=== PATIENT | male | born 1975 | race Caucasian/White ===

== ENCOUNTER 2018-04-20 17:11 | Emergency (ER) | payer SELFPAY ==
[~2018-04-20] VITALS: Ht 170.2 cm; Wt 59.0 kg
[2018-04-20 18:16] LABS: BASO % 1 % (0-3); EOS # 0.1 x10^3/uL (0.0-0.7); EOS % 1 % (0-3); HEMATOCRIT 43.9 % (39.0-53.0); HEMOGLOBIN 14.9 g/dL (13.0-17.5); LYMPH % 25 % (24-48); MEAN CORPUSCULAR HEMOGLOBIN 32 pg (25-35); MEAN CORPUSCULAR HGB CONC 34 g/dL (31-37); MEAN CORPUSCULAR VOLUME 95 fL (79-100); MONO # 0.3 x10^3/uL (0.0-1.1); MONO % 4 % (0-9); NEUT # 5.5 x10^3uL (1.8-7.7); NEUT % 70 % (31-73); PLATELET COUNT 215 x10^3/uL (140-400); RED BLOOD COUNT 4.61 x10^6/uL (4.30-5.70); RED CELL DISTRIBUTION WIDTH 13.8 % (11.5-14.5); WHITE BLOOD COUNT 7.9 x10^3/uL (4.0-11.0)
[2018-04-20 18:27] LABS: CALCIUM 8.3 mg/dL (8.5-10.1); CREATININE 0.8 mg/dL (0.7-1.3); GFR 104.5; POTASSIUM 4.1 mmol/L (3.5-5.1)
[2018-04-20] MEDS ORDERED: THIAMINE 100 MG TABLET. PO ONE (19:00)
[2018-04-20] MEDS ORDERED: MULTIVIT INFUSN,ADULT 4,VIT K 10 ML, FOLIC ACID INJ 1 MG in IV NORMAL SALINE 1000ML BAG... IV ONE (19:00)
--- NOTE | 2018-04-20 19:09 | RAD ---
CT scan of the head without contrast 04/20/2018 Clinical History: Seizure. Fall. Head injury. Technique: Unenhanced, contiguous, 5 mm axial sections were obtained through the head. One or more of the following individualized dose reduction techniques were utilized for this study: 1. Automated exposure control. 2. Adjustment of the mA and/or kV according to patient size. 3. Use of iterative reconstruction technique. Findings: The ventricles and sulci are within normal limits in size and configuration. No focal area of abnormal attenuation is seen involving the brain parenchyma. No extra-axial fluid collection is seen. No skull fracture is seen. Mild mucosal thickening is seen along the right maxillary sinus. Impression: No acute intracranial abnormality is seen. CT scan of the cervical spine without contrast 04/20/2018 Clinical history: Fall with neck injury. Technique: Unenhanced, contiguous, 0.625 mm axial sections were obtained through the cervical spine. Axial, coronal and sagittal reconstructed images were obtained. One or more of the following individualized dose reduction techniques were utilized for this study: 1. Automated exposure control. 2. Adjustment of the mA and/or kV according to patient size. 3. Use of iterative reconstruction technique. Findings: Sagittal and coronal reconstructed images demonstrate minimal lateral curvature of the cervical spine, convex to the left. No fracture or subluxation cervical vertebrae is seen. Impression: No fracture or subluxation of the cervical vertebra is identified. Electronically signed by: Ashkan Barnes MD (04/20/2018 7:06 PM) [facility]
--- NOTE | 2018-04-20 20:32 | PHYS DOC ---
Past Medical History Past Medical History: Other Additional Past Medical Histor: SEIZURES (MISSY GREENWOOD APRN) Past Surgical History: Other Additional Past Surgical Histo: RIGHT KNEE ACL REPAIR (MISSY GREENWOOD APRN) Alcohol Use: Heavy Drug Use: None (MISSY GREENWOOD APRN) Adult General Chief Complaint Chief Complaint: SEIZURE HPI HPI Patient is a 43 year old male who was brought to the ER after a rapid response on the ground floor was initiated. Pt states he was driving when he felt like he was going to have a seizure so he drove himself to the ER from [place], [place]. Pt states when he got to the hospital he was lost and ended up falling on the floor. He reports head and neck pain from the fall. Security reviewed footage of the patient's arrival to the ER and his reported fall on the ground floor. Video footage showed the patient sitting on the floor, getting back up and then falling back onto his buttocks then proceeding to lie flat backwards. Pt admits to drinking a pint of vodka prior to coming to the ER. He was placed in a c-collar by the rapid response team and brought to room 20 on a gurney. Pt reports that he was prescribed keppra by [facility] last month after he was seen for seizures. He states he never filled the prescription because he could not afford it. PT also states that he has never been diagnosed with seizures by a neurologist and reports that no neurologist will evaluate him because he does not have insurance. (MISSY GREENWOOD APRN) Review of Systems Review of Systems Constitutional: Denies fever or chills [] Eyes: Denies change in visual acuity, redness, or eye pain [] HENT: Denies nasal congestion or sore throat [] Respiratory: Denies cough or shortness of breath [] Cardiovascular: No additional information not addressed in HPI [] GI: Denies abdominal pain, nausea, vomiting, or diarrhea [] Gu: Denies incontinence Musculoskeletal: See HPI Integument: Denies rash or skin lesions [] Neurologic: Denies focal weakness or sensory changes; see HPI Complete systems were reviewed and found to be within normal limits, except as documented in this note. (MISSY GREENWOOD APRN) Current Medications Current Medications Current Medications Medications (Trade) Dose Ordered Sig/Oswaldo Start Time Stop Time Status Last Admin Dose Admin Multivitamins 10 ml/Folic Acid 1 mg/Sodium Chloride 1,010.2 ml @ 999.099 mls/hr 1X ONCE 04/20/18 19:00 04/20/18 20:00 DC 04/20/18 19:01 999.099 MLS/HR Thiamine Mononitrate (Vitamin B-1) 100 mg 1X ONCE 04/20/18 19:00 04/20/18 19:01 DC 04/20/18 19:00 100 MG (DENITA COLLAZO MD) Allergies Allergies Allergies Coded Allergies Type Severity Reaction Last Updated Verified No Known Drug Allergies 04/20/18 No (DENITA COLLAZO MD) Physical Exam Physical Exam Constitutional: Well developed, well nourished, no acute distress, non-toxic appearance, strong odor of ETOH. [] HENT: Normocephalic, atraumatic, bilateral external ears normal, oropharynx moist, no oral exudates, nose normal. [] Eyes: conjunctiva injected, no discharge. [] Neck: Normal range of motion, no midline tenderness, supple, no stridor. [] Cardiovascular:Heart rate regular rhythm, no murmur [] Lungs & Thorax: Bilateral breath sounds clear to auscultation [] Abdomen soft, no tenderness, no masses, no pulsatile masses. [] Skin: Warm, dry, no erythema, no rash. [] Back: No redness or deformity noted Extremities: No cyanosis, ROM intact, no edema. [] Neurologic: Alert and oriented X 3, normal motor function, normal sensory function, no focal deficits noted. [] Psychologic: Affect normal, judgement normal, mood normal. [] (MISSY GREENWOOD APRN) Current Patient Data Vital Signs Vital Signs Date Time Temp Pulse Resp B/P (MAP) Pulse Ox O2 Delivery O2 Flow Rate FiO2 04/20/18 21:30 78 97 04/20/18 18:30 18 04/20/18 17:11 98.0 124/71 (88) Room Air 98.0 (DENITA COLLAZO MD) Lab Values Laboratory Tests Test 04/20/18 18:07 White Blood Count 7.9 x10^3/uL (4.0-11.0) Red Blood Count 4.61 x10^6/uL (4.30-5.70) Hemoglobin 14.9 g/dL (13.0-17.5) Hematocrit 43.9 % (39.0-53.0) Mean Corpuscular Volume 95 fL (79-100) Mean Corpuscular Hemoglobin 32 pg (25-35) Mean Corpuscular Hemoglobin Concent 34 g/dL (31-37) Red Cell Distribution Width 13.8 % (11.5-14.5) Platelet Count 215 x10^3/uL (140-400) Neutrophils (%) (Auto) 70 % (31-73) Lymphocytes (%) (Auto) 25 % (24-48) Monocytes (%) (Auto) 4 % (0-9) Eosinophils (%) (Auto) 1 % (0-3) Basophils (%) (Auto) 1 % (0-3) Neutrophils # (Auto) 5.5 x10^3uL (1.8-7.7) Lymphocytes # (Auto) 2.0 x10^3/uL (1.0-4.8) Monocytes # (Auto) 0.3 x10^3/uL (0.0-1.1) Eosinophils # (Auto) 0.1 x10^3/uL (0.0-0.7) Basophils # (Auto) 0.0 x10^3/uL (0.0-0.2) Sodium Level 147 mmol/L (136-145) H Potassium Level 4.1 mmol/L (3.5-5.1) Chloride Level 108 mmol/L (98-107) H Carbon Dioxide Level 25 mmol/L (21-32) Anion Gap 14 (6-14) Blood Urea Nitrogen 13 mg/dL (8-26) Creatinine 0.8 mg/dL (0.7-1.3) Estimated GFR (Cockcroft-Gault) 104.5 Glucose Level 68 mg/dL (70-99) L Calcium Level 8.3 mg/dL (8.5-10.1) L Ethyl Alcohol Level 337 mg/dL (0-10) H Laboratory Tests 04/20/18 18:07 Laboratory Tests 04/20/18 18:07 (DENITA COLLAZO MD) EKG EKG [] (MISSY GREENWOOD APRN) Radiology/Procedures Radiology/Procedures PROCEDURE: CT HEAD AND CERVICAL SPINE WO CT scan of the head without contrast 04/20/2018 Clinical History: Seizure. Fall. Head injury. Technique: Unenhanced, contiguous, 5 mm axial sections were obtained through the head. One or more of the following individualized dose reduction techniques were utilized for this study: 1. Automated exposure control. 2. Adjustment of the mA and/or kV according to patient size. 3. Use of iterative reconstruction technique. Findings: The ventricles and sulci are within normal limits in size and configuration. No focal area of abnormal attenuation is seen involving the brain parenchyma. No extra-axial fluid collection is seen. No skull fracture is seen. Mild mucosal thickening is seen along the right maxillary sinus. Impression: No acute intracranial abnormality is seen. CT scan of the cervical spine without contrast 04/20/2018 Clinical history: Fall with neck injury. Technique: Unenhanced, contiguous, 0.625 mm axial sections were obtained through the cervical spine. Axial, coronal and sagittal reconstructed images were obtained. One or more of the following individualized dose reduction techniques were utilized for this study: 1. Automated exposure control. 2. Adjustment of the mA and/or kV according to patient size. 3. Use of iterative reconstruction technique. Findings: Sagittal and coronal reconstructed images demonstrate minimal lateral curvature of the cervical spine, convex to the left. No fracture or subluxation cervical vertebrae is seen. Impression: No fracture or subluxation of the cervical vertebra is identified.[] (MISSY GREENWOOD APRN) Course & Med Decision Making Course & Med Decision Making Pertinent Labs and Imaging studies reviewed. (See chart for details) Dx: alcohol intoxication CT was negative for any acute findings. Labs revealed a CM of 337, glucose was 68, pt was given a meal tray. Pt also received a banana bag in the ER. CBC unremarkable Pt was unable to find a ride home, he slept in the ER until was clinically sober. [] (MISSY GREENWOOD APRN) Course & Med Decision Making Staff Physician Addendum: I was working in the ER during the course of this patient's visit. I was available for consultation as needed, I did briefly evaluate this patient the time of discharge and he was clinically very stable (DENITA COLLAZO MD) Dragon Disclaimer Dragon Disclaimer This electronic medical record was generated, in whole or in part, using a voice recognition dictation system. (MISSY GREENWOOD APRN) Departure Departure Impression: Primary Impression: Alcohol intoxication Disposition: 01 HOME, SELF-CARE Condition: STABLE Referrals: NO PCP (PCP) Patient Instructions: Alcohol Intoxication, [id number], Alcohol Problems Additional Instructions: Stop drinking alcohol. Follow up with your primary care doctor as needed. Return to the ER if your symptoms worsen. Problem Qualifiers Primary Impression: Alcohol intoxication Complication of substance-induced condition: uncomplicated Qualified Codes: F10.920 - Alcohol use, unspecified with intoxication, uncomplicated MISSY GREENWOOD APRN Apr 20, 2018 20:32 DENITA COLLAZO MD Apr 23, 2018 03:22
[2018-04-20 21:30] VITALS: BP 103/65
== END 2018-04-21 00:33 | disposition home or self-care (01) ==
LOC: ER 17:11
DX: F10.229 Alcohol dependence with intoxication, unspecified (principal); Y90.8 Blood alcohol level of 240 mg/100 ml or more; R56.9 Unspecified convulsions; R51 Headache; M54.2 Cervicalgia; W18.39XA Other fall on same level, initial encounter; Y93.89 Activity, other specified; Y92.89 Other specified places as the place of occurrence of the external cause; Y99.8 Other external cause status
CPT/HCPCS: 36415; 70450; 72125; 80048; 85025; 96365; 99284; G0480; J7030